=== PATIENT | male | born 1970 | race Caucasian/White ===

== ENCOUNTER 2017-07-09 18:22 | Emergency (ER) | payer SELFPAY ==
[~2017-07-09] VITALS: Ht 170.2 cm; Wt 72.7 kg
[2017-07-09] MEDS ORDERED: FLUORESCEIN SODIUM 1 MG STRIP ONE (19:07)
[2017-07-09] MEDS ORDERED: PROPARACAINE HCL 0.5% 15 ML OPHTHALMIC SOLUTION OD ONE (19:15)
[2017-07-09] MEDS ORDERED: IBUPROFEN 800 MG TABLET PO ONE (19:30)
[2017-07-09 19:56] VITALS: BP 136/95
== END 2017-07-09 19:59 | disposition home or self-care (01) ==
LOC: EDBD 18:24 → EMS 18:24
DX: S05.01XA Injury of conjunctiva and corneal abrasion without foreign body, right eye, initial encounter (principal); X58.XXXA Exposure to other specified factors, initial encounter; Y93.89 Activity, other specified; Y92.89 Other specified places as the place of occurrence of the external cause; Y99.8 Other external cause status
CPT/HCPCS: 99283